=== PATIENT | female | born 2000 | race Caucasian/White ===

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

== ENCOUNTER 2021-02-25 08:25 | Outpatient (RCR) | payer OTHER, SELFPAY | END 2021-05-13 11:57 | disposition home or self-care (01) | LOC: ANHDMC 08:25 | PROVIDERS: PCP Pediatrics; Visit Provider Pediatrics | DX: R63.4 Abnormal weight loss (principal) | CPT/HCPCS: 99199 ==